=== PATIENT | female | born 1990 | race Caucasian/White ===

== ENCOUNTER 2016-10-05 17:32 | Emergency (ER) | payer OTHER ==
[2016-10-05] MEDS ORDERED: KETOROLAC 30 MG/ML VIAL IVP STA (18:03)
[2016-10-05] MEDS ORDERED: PROMETHAZINE INJ 25 MG in SODIUM CHLORIDE 0.9% 50 ML IV STA (18:03)
[2016-10-05] MEDS ORDERED: LOPERAMIDE 2 MG CAPSULE PO STA (18:03)
[2016-10-05] MEDS ORDERED: SODIUM CHLORIDE 0.9% 1,000 ML IV ONE (18:03)
[2016-10-05] MEDS ORDERED: PROMETHAZINE 25 MG/1 ML VIAL ONE (18:11)
[2016-10-05] MEDS ORDERED: KETOROLAC 30 MG/ML VIAL ONE (18:11)
[2016-10-05] MEDS ORDERED: LOPERAMIDE 2 MG CAPSULE PO ONE (18:11)
[2016-10-05] MEDS ORDERED: IOPAMIDOL-300 100 ML VIAL IVP ONE (19:28)
[2016-10-05] MEDS ORDERED: ONDANSETRON ODT 4 MG Prepack 2 TL STA (20:06)
[2016-10-05] MEDS ORDERED: ONDANSETRON ODT 4 MG Prepack 2 TL ONE (20:08)
== END 2016-10-05 20:20 | disposition home or self-care (01) ==
DX: K76.0 Fatty (change of) liver, not elsewhere classified (principal); K57.30 Diverticulosis of large intestine without perforation or abscess without bleeding; R10.84 Generalized abdominal pain; D72.829 Elevated white blood cell count, unspecified; R11.10 Vomiting, unspecified; R19.7 Diarrhea, unspecified
CPT/HCPCS: 36415; 74177; 80053; 80307; 81001; 81025; 83690; 85025; 87339; 96365; 96375; 99283; 99284; A9270; Q9967

== ENCOUNTER 2019-06-09 10:16 | Outpatient (CLI) | payer OTHER ==
--- NOTE | 2019-06-09 16:15 | CT Report ---
Reason: HEADACHE Procedure Date: 06/09/2019 Accession Number: [id number] / [id number] Procedure: CT - HEAD WO CPT Code: FULL RESULT: EXAM: CT HEAD EXAM DATE: 06/09/2019 10:51 AM. CLINICAL HISTORY: HEADACHE. COMPARISON: None. TECHNIQUE: Multiaxial CT images were obtained from the foramen magnum to the vertex. Reformats: Sagittal and coronal. IV contrast: None. In accordance with CT protocol optimization, one or more of the following dose reduction techniques were utilized for this exam: automated exposure control, adjustment of mA and/or KV based on patient size, or use of iterative reconstructive technique. FINDINGS: Parenchyma: No intraparenchymal hemorrhage. No evidence of mass, midline shift. Gao-white differentiation is distinct. Extraaxial Spaces: Basal cisterns are preserved. No subdural or epidural collections identified. Ventricles: Normal in size and position. Sinuses and Orbits: Partial visualization of macular sinuses demonstrates opacification of the left ostiomeatal unit with partial opacification of the left maxillary sinus. Frontal sinuses, ethmoid air cells and sphenoid sinuses appear clear. Mastoid cells are normally pneumatized. Osseous orbits are unremarkable. Bones: No evidence of fracture or calvarial defect. Other: None. IMPRESSION: Sinusitis. RADIA
== END 2019-06-09 10:17 | disposition home or self-care (01) ==
LOC: DI 10:16
PROVIDERS: ATTEND Physician Assistant
DX: J32.0 Chronic maxillary sinusitis (principal)
CPT/HCPCS: 70450

== ENCOUNTER 2019-11-14 08:51 | Outpatient (CLI) | payer OTHER | END 2019-11-14 08:52 | disposition home or self-care (01) | LOC: DI 08:51 | PROVIDERS: ATTEND Physician Assistant | DX: Z53.9 Procedure and treatment not carried out, unspecified reason (principal) ==

== ENCOUNTER 2020-05-16 09:40 | Outpatient (CLI) | payer OTHER ==
[2020-05-16 15:51] LABS: THYROID STIMULATING HORMONE 0.3 uIU/mL (0.34-5.60)
[2020-05-16 15:53] LABS: FREE T4 (FREE THYROXINE) 1.28 ng/dL (0.58-1.64)
== END 2020-05-16 09:41 | disposition home or self-care (01) ==
LOC: LAB.S 09:40
PROVIDERS: ATTEND Physician Assistant
DX: E03.9 Hypothyroidism, unspecified (principal)
CPT/HCPCS: 36415; 84439; 84443

== ENCOUNTER 2020-11-21 13:15 | Outpatient (CLI) | payer OTHER ==
[2020-11-21 14:03] VITALS: BP 122/77
--- NOTE | 2020-11-21 14:03 | SLEEP CARE CONSULTATION ---
Information from patient questionnaire entered by Palbito Cruz. I have reviewed and concur with the information entered by Pablito Cruz. This document represents the service I personally performed and the decisions made by me, Ilana Davis ARNP. History of Present Illness Service Date and Time: 11/21/2020 1315 Reason for Visit: New patient Chief Complaint: reports: Unrefreshed sleep, Snoring (on and off, can be quiet or very loud), Fatigue. denies: Observed pauses in breathing Date of Onset: Unknown Usual bedtime: Approx. 8 PM Time it takes to fall asleep: 1 in - 30 min Snores at night: Yes (so I have been told) Observed to quit breathing while asleep: No Sleeps alone due to snoring: No Number of times waking at night: 0-2 times/night Reasons for waking at night: reports: Pain, Bathroom. denies: Choking, Snoring, Gasping for air Toss, Turn, or Twitch while sleeping: Yes Recalls having dreams: Yes Usually gets out of bed at: 3:30 - 4:15 AM Feels refreshed in the morning: No Morning headache: No Sleepy or fatigued during the day: Yes Ever fallen asleep while driving: No Takes day naps: No Dreams during day naps: No Prior sleep studies: No Additional HPI information: I had the pleasure of seeing MATTHEW GARCIA today regarding the possibility of her having a sleep disorder. Her current complaints are unrefreshed sleep, snoring and fatigue. She has trouble sleeping. She has gained a lot of weight in last 5 years, about 60 pounds. She had a thyroid issue after her daughter was born in 2013 and she has not been able to get her weight back down since that time. She states her current living situation in a trailer may be the main cause of her trouble sleeping because the bed is not comfortable to sleep in. She wakes up feeling very tired daily when she gets up for work at [id number]. She does snore but her states that it is light some nights and loud other nights. He has not witnessed her pause in breathing. Her mother and sister have sleep apnea and are on CPAP machines. She states they are both overweight. She thinks that she probably does not have sleep apnea and just needs to lose weight. 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 Patient is and lives in [place]. Have you smoked in the past 12 months: No Alcohol use: Yes Alcohol amount and frequency: 1 drink, 1-2/month Caffeine use: Yes Caffeine amount and frequency: 2-3 shots Daily Family History Family history of sleep disordered breathing: Yes (Mother and sister) Family Hx Sleep Apnea: Mother: Sleep apnea - Treated, Sibling: Sleep apnea - Treated Allergies and Home Medications Drug allergies reviewed: Yes (metronidazole, penicillin) Home medication list reviewed: Yes Allergy and home medication list: Levothyroxine Multivitamins Review of Systems Weight gain over past 5 years: 60 Cardiovascular: denies: high blood pressure Gastrointestinal: reports: nausea. denies: heartburn Neurological: reports: headaches. denies: seizure Ear/Nose/Throat: reports: nose bleeds, wisdom teeth removed. denies: dry mouth/throat, tonsillectomy Endocrine: reports: thyroid disease (?) Musculoskeletal: reports: back pain Immunologic: denies: allergies to food or environment Physical Exam Blood Pressure: 122/77 Cuff size: wrist Heart Rate: 81 O2 Saturation: 97 Height: 5 ft 2 in Weight: 259 lb Body Mass Index: 47.3 BMI Classification: Morbidly Obese Neck circumference: 17 (inches) Nostrils: patent to airflow Mouth and throat: narrow oropharynx Soft palate: long Hard palate: normal Uvula: normal Uvula visualization: 50% Mallampati Class II Tongue: enlarged in size with teeth mchugh on lateral edges Tonsils: 1+ Neck: normal w/o lymphadenopathy or thyromegaly Heart: regular rate and rhythm Lungs: clear bilaterally Impression and Plan 1. Suspected Obstructive Sleep Apnea-Hypopnea Syndrome, as suggested by a history of irregular snoring and unrefreshed sleep. Narrow oropharynx and obesity are common predisposing factors for obstructive sleep apnea-hypopnea syndrome. I recommend proceeding to polysomnography to confirm the diagnosis and to assess severity. If the patient has significant sleep disordered breathing, a manual CPAP titration study will also be performed to find the optimal treatment pressure. I informed the patient of what the sleep studies involve and after some discussion, obtained agreement to proceed. The pathophysiology of obstructive sleep apnea-hypopnea syndrome was discussed with the patient and health risks of cardiovascular and cerebrovascular disease if not treated. Risks of drowsy driving discussed in detail and patient advised to avoid long distance driving and to loin puller at the first sign of drowsiness. Patient agreed to plan. * Schedule polysomnography +- manual CPAP titration study and return in 1-2 weeks after the study to discuss result and initiate therapy. * Avoid long distance driving or driving when feeling sleepy. * Avoid alcohol, sedative and muscle relaxant around bedtime. * Attempt to lose weight. * Review instructions provided by trained office staff on how to prepare for the sleep study. * Return for follow-up after sleep study completed. Counseling Topics: Weight loss health impact Visit Type: In Office Time Spent with Patient (minutes): 31 Provider Statement: I spent 100% of the Face to Face Visit with the patient with greater than 50% spent counseling the patient and coordination of care.
== END 2020-11-21 13:16 | disposition home or self-care (01) ==
LOC: SC 13:15
PROVIDERS: ATTEND Nurse Practitioner Family
DX: R06.83 Snoring (principal); G47.8 Other sleep disorders; E66.01 Morbid (severe) obesity due to excess calories; Z68.42 Body mass index [BMI] 45.0-49.9, adult
CPT/HCPCS: 99203; 99212

== ENCOUNTER 2020-12-18 15:07 | Outpatient (CLI) | payer OTHER | END 2020-12-18 15:08 | disposition home or self-care (01) | LOC: SC 15:07 | PROVIDERS: ATTEND Nurse Practitioner Family | DX: G47.33 Obstructive sleep apnea (adult) (pediatric) (principal); E66.9 Obesity, unspecified; Z68.42 Body mass index [BMI] 45.0-49.9, adult | CPT/HCPCS: 95806 ==

== ENCOUNTER 2021-01-02 11:21 | Outpatient (CLI) | payer OTHER ==
--- NOTE | 2021-01-02 11:39 | SLEEP CARE CONSULTATION ---
Information from patient questionnaire entered by Marielle Lozoya. I have reviewed and concur with the information entered by Marielle Lozoya. This document represents the service I personally performed and the decisions made by , Ilana Davis ARNP. History of Present Illness Service Date and Time: 01/02/2021 112 Initial [place] Sleepiness Scale score: 6 (in 2020) Current [place] Sleepiness Scale score: 7 Additional HPI information: MATTHEW GARCIA returns via Telehealth visit for follow up and results of the recently performed home sleep study. I explained the pathophysiology behind obstructive sleep apnea. We then spent quite a bit of time discussing different treatment options. For mild obstructive sleep apnea, surgery and oral appliance are alternatives to nasal CPAP therapy but in moderate or severe cases, nasal CPAP is the most effective and reliable treatment. Because apnea is primarily in supine position, then positional management therapy could be effective. Methods discussed such as positioning with pillows, using a T-shirt with tennis balls in the back, and shown commercial products that have a pillow format on back to prevent supine sleep. I reviewed the impact of weight changes on sleep apnea and strongly recommended losing weight. After some discussion, the patient opted to go with the nasal CPAP therapy. Nasal autoCPAP set at 4-15 cmH20 will be ordered with rationale explained. A manual titration study will be ordered if unable to find optimal pressure with office adjustments. I explained how CPAP machine works and what to expect when using the machine. Using CPAP every night in order to get used to it was emphasized. Patient advised to put CPAP mask on before getting into bed so as not to fall asleep without CPAP. To assist acclimation to CPAP use, it could also be used for a short time during day while reading or watching TV. The patient was instructed to call the CPAP supplier to discuss any mechanical problem that may occur. If the mask given is uncomfortable or is difficult to keep on through the night even with adjustment, contact the CPAP supplier as many will replace with another mask style if notified before 30 days. If snoring or perceives is not getting enough air or too much air from the machine, notify this office. Patient counseled not drink alcohol less than 4 hours before bedtime as it can increase snoring and apnea. Patient was cautioned about risks of drowsy driving until sleepiness symptoms resolve. Sleep Study - Results Type of Sleep Study: Home sleep study Prior sleep studies: No Polysomnography/Home Sleep Study results: Physician Impression: The quality of the study is good. The length of the study is adequate (> 240 minutes). Please also see the tabulated and graphic data. 1. Obstructive Sleep Apnea-Hypopnea (ICD-10 G47.33), moderate, with an AHI of 24.3/hr and mat SaO2 of 84%. During the study, the patient had 165 apneas (163 obstructive, 0 central, 2 mixed) and 50 hypopneas. The longest episode lasted 76.0 seconds. The respiratory events occurred more frequently during supine sleep (supine AHI was 28.7 and non-supine, 12.94). 2. Hypoxemia (ICD-10 R09.02), mild, with the lowest oxygen saturation of 84 % and 1.1 minutes with SaO2 under 90%. Baseline oxygen saturation was normal (Average oxygen saturation was 96%). Allergies and Home Medications Home medication list reviewed: Yes (no changes) Review of Systems Review of systems same as previous: Yes (no changes) Physical Exam Vital signs obtained and entered by: Telehealth visit to reduce exposure during Covid pandemic Height: 5 ft 2 in Impression and Plan 1. Obstructive Sleep Apnea-Hypopnea Syndrome, moderate, with lowest oxygen saturation of 84%. Obviously this is the cause of the patients symptoms of unrefreshed sleep, and excessive daytime sleepiness. Positive pressure therapy could benefit depression. As mentioned above, the patient will be started on nasal autoCPAP therapy with pressure set at 4-15 cmH2O. A manual titration study will be completed if unable to find optimal treatment pressure with office adjustments. Compliance guidelines also reviewed. Because the apnea is more severe supine, I instructed to avoid sleeping supine using pillow positioning until able to start CPAP use. 2. Hypoxemia, mild, with the lowest oxygen saturation of 84 % and 1.1 minutes with SaO2 under 90%. Her baseline oxygen saturation was normal with an average oxygen saturation of 96%. * Nasal auto CPAP therapy, pressure at 4-15 cm H2O. * Attempt to lose weight. * Avoid alcohol consumption near bedtime. * Avoid supine sleep until using CPAP. * The patient is again cautioned about driving until sleepiness completely resolves. * Return one month after CPAP obtained. I will assess response to therapy and compliance at that time. Counseling Topics: Spare mask, Weight loss health impact Visit Type: Telehealth Video Video Type: VSee Patient Location: Car Location of Provider: Office Patient agrees and consents to this telehealth visit type: Yes Patient agrees to have their insurance billed: Yes Time Spent with Patient (minutes): 20 Provider Statement: I spent 100% of the Telehealth Video Call with the patient with greater than 50% spent counseling the patient and coordination of care.
== END 2021-01-02 11:22 | disposition home or self-care (01) ==
LOC: SC 11:21
PROVIDERS: ATTEND Nurse Practitioner Family
DX: G47.33 Obstructive sleep apnea (adult) (pediatric) (principal); R09.02 Hypoxemia

== ENCOUNTER 2021-05-08 14:10 | Outpatient (CLI) | payer OTHER ==
--- NOTE | 2021-05-08 17:04 | XRAY Report ---
PROCEDURE: Foot 3 View RT INDICATIONS: RIGHT FOOT PAIN TECHNIQUE: 3 views of the foot were acquired. COMPARISON: None FINDINGS: Bones: No fractures or dislocations. No suspicious bony lesions. Retrocalcaneal plantar bone spurs . Soft tissues: No tibiotalar joint effusion. Achilles tendon appears normal. IMPRESSION: No fracture. No osseous lesion. If there is continued clinical concern for pathology, then advanced i maging (CT, MRI, bone scan) should be considered for further evaluation. Reviewed by: ROBERT Hines on 05/08/2021 5:03 PM PDT Approved by: Carlos A Cochran MD on 05/08/2021 5:03 PM PDT Station ID: [id number]
== END 2021-05-08 23:59 | disposition home or self-care (01) ==
LOC: DI.S 14:10
PROVIDERS: ATTEND Physician Assistant Medical
DX: M79.671 Pain in right foot (principal)

== ENCOUNTER 2021-05-29 13:23 | Outpatient (CLI) | payer OTHER ==
--- NOTE | 2021-05-29 13:46 | SLEEP CARE CONSULTATION ---
Information from patient questionnaire entered by Marielle Lozoya. I have reviewed and concur with the information entered by Marielle Lozoya. This document represents the service I personally performed and the decisions made by , Ilana Davis ARNP. History of Present Illness Service Date and Time: 05/29/2021 1323 Previous diagnosis: Moderate, Obstructive Sleep Apnea-Hypopnea Syndrome AHI: 24.3 (in 2020) Reason for follow up: first compliance Equipment type: CPAP Equipment obtained from: Other ([facility]; got initial supplies) Mask style: Nasal Backup mask available: No (will keep old mask when replaced) Last cushion change: 1 month Prior sleep studies: Yes Year and Where: 2020 - [facility] Type of Sleep Study: Home sleep study HPI additional information: MATTHEW GARCIA was diagnosed to have moderate, AHI 24.3, obstructive sleep apnea-hypopnea syndrome and returns via Video Telehealth visit today for CPAP therapy first compliance follow-up. CPAP Compliance Data - Data Reviewed with Patient Average duration of nightly device use: 6 hr 8 min Compliance rate %: 73 Current pressure setting (cmH2O): 4-15 (median 7.0, avg 10.3, max 11.7) Humidity settin Average residual AHI: 0.7 Subjective Missed days of use due to: reports: mask issues (hard time falling asleep with mask on, having panic attacks) Patient concerns: reports: mask discomfort (headset mostly), mask leak noise (when sleeping on side or stomach), condensation in mask/hose (woke up with "flooding into mask"). denies: aerophagia, air blowing in eyes, nasal congestio n, dry mouth, nose, throat, epistaxis, other Observed to snore while using device: No Current pressure setting perceived as: comfortable On therapy, patient: reports: other (having trouble waking up with panic attacks; having less headaches). denies: sleeping better, awakening more refreshed, being more awake and alert during the day, more rested overall, drowsiness while driving Initial [place] Sleepiness Scale score: 6 (in 2020) Current [place] Sleepiness Scale score: 4 Allergies and Home Medications Home medication list reviewed: Yes (Levothyroxine to 150 mcg) Review of Systems Review of systems same as previous: Yes (no changes) Physical Exam Vital signs obtained and entered by: Telehealth visit to reduce exposure during Covid pandemic Height: 5 ft 2 in Impression and Plan 1. Obstructive Sleep Apnea-Hypopnea Syndrome, moderate, with good treatment compliance and excellent apnea control. On CPAP therapy, the patient has not found that she is having better sleep quality or being more rested overall. Patient has had several incidences waking up in a panic attack due to condensation in the mask. She called her [employer] company and they had her turn her humidity down. She has also turned her heated hose down because it was too warm on her face. She is not getting this condensation every night but it still occurs to a small degree. She does not feel she is getting better rest because of the interruptions due to the mask and the condensation yet. She continues to try to wear it every night and has reached compliance.We discussed that she may turn the humidity off as long as she is not developing oral or nasal dryness. She voiced understanding. Patient states the current pressure has felt comfortable at the beginning of the night but gets more uncomfortable when the pressure increases. The patients pressure will be changed to autoCPAP 7-12 cmH20 to reflect the pressure used by patient. Patient advised to contact me if pressure change is uncomfortable so that it can be adjusted. Goals for apnea control discussed. Patient was encouraged to lose weight for their overall health and to reduce apneas. Patient's apnea severity and rationale for treatment to reduce apnea, improve sleep quality and reduce cardiovascular and cerebrovascular events was reviewed. I also reviewed the benefit of consistent device use of CPAP for depression. * Change auto CPAP pressure to 7-12 cmH2O * Notify me if snoring with mask or feeling that the pressure is too much or too little * Attempt to lose weight * Call this office if any problems using CPAP * Return for follow up in 3 months, or sooner if concerns arise Counseling Topics: Spare mask, Weight loss health impact Visit Type: Telehealth Video Video Type: VSee Patient Location: Home Location of Provider: Office Patient agrees and consents to this telehealth visit type: Yes Patient agrees to have their insurance billed: Yes Time Spent with Patient (minutes): 24 Provider Statement: I spent 100% of the Telehealth Video Call with the patient with greater than 50% spent counseling the patient and coordination of care.
== END 2021-05-29 13:24 | disposition home or self-care (01) ==
LOC: SC 13:23
PROVIDERS: ATTEND Nurse Practitioner Family
DX: G47.33 Obstructive sleep apnea (adult) (pediatric) (principal)

== ENCOUNTER 2021-07-10 11:31 | Outpatient (CLI) | payer OTHER ==
--- NOTE | 2021-07-10 12:02 | SLEEP CARE CONSULTATION ---
Information from patient questionnaire entered by Nandini Funes. I have reviewed and concur with the information entered by Nandini Funes. This document represents the service I personally performed and the decisions made by , Ilana Davis ARNP. History of Present Illness Service Date and Time: 07/10/2021 1131 Previous diagnosis: Moderate, Obstructive Sleep Apnea-Hypopnea Syndrome AHI: 24.3 Reason for follow up: other (6 week with pressure change) Equipment type: CPAP Equipment obtained from: Other ([facility]; just ordered new supplies) Mask style: Nasal Backup mask available: No (waiting on supplies) Last cushion change: over 1 month Prior sleep studies: Yes Year and Where: 2020 - [facility] Type of Sleep Study: Home sleep study HPI additional information: MATTHEW GARCIA was diagnosed to have moderate, AHI 24.3, obstructive sleep apnea-hypopnea syndrome and returns via video telehealth visit today for CPAP therapy 6 week pressure change follow-up. Sleep Study - Results Type of Sleep Study: Home sleep study Prior sleep studies: Yes Year and Where: 2020 - [facility] CPAP Compliance Data - Data Reviewed with Patient Average duration of nightly device use: 6 hours 28 minutes Compliance rate %: 86 Current pressure setting (cmH2O): 7-12 (median 8.2, avg 10.7, max 11.6) Average residual AHI: 0.5 Central apnea: 0 Obstructive apnea: .4 Hypopnea: .1 Subjective Missed days of use due to: reports: other (panic attacks, will take a night off) Patient concerns: reports: mask discomfort (getting loose), condensation in mask/hose (occasional, has adjusted heated hose and humidity with some improvement), other (panic attacks nightly). denies: aerophagia, air blowing in eyes, mask leak noise, nasal congestion, dry mouth, nose, throat, epistaxis Observed to snore while using device: No Current pressure setting perceived as: comfortable On therapy, patient: reports: other (not feeling more rested or sleeping better at this point). denies: drowsiness while driving Initial [place] Sleepiness Scale score: 6 (in 2020) Current [place] Sleepiness Scale score: 6 Allergies and Home Medications Home medication list reviewed: Yes (no changes) Review of Systems Review of systems same as previous: Yes (no changes) Physical Exam Vital signs obtained and entered by: Telehealth visit to reduce exposure during covid pandemic Height: 5 ft 2 in Impression and Plan 1. Obstructive Sleep Apnea-Hypopnea Syndrome, moderate, with good treatment compliance and excellent apnea control. On CPAP therapy, the patient has better sleep quality and is more rested overall. Patient is satisfied with CPAP therapy and her pressure setting is comfortable. Patient experiencing panic attacks at night and will have to take off her mask. Patient states she was having panic attacks prior to using the CPAP but because of her claustrophobia she continues to have these panic attacks. She is not sure that she can leave it on the CPAP. She feels the pressure was just too high at first that it caused some panic attacks but she states she is used to the pressure now and does not want any changes. Patient's apnea severity and rationale for treatment to reduce apnea, improve sleep quality and reduce cardiovascular and cerebrovascular events was reviewed. I also reviewed the benefit of consistent device use of CPAP for depression. Patient was encouraged to lose weight for their overall health and to reduce apneas. * Continue auto CPAP pressure at 7-12 cmH2O * Notify me if snoring with mask or feeling that the pressure is too much or too little * Attempt to lose weight * Call this office if any problems using CPAP * Return for follow up in 3 months, or sooner if concerns arise Counseling Topics: Spare mask, Weight loss health impact Visit Type: Telehealth Video Video Type: VSee Patient Location: car Location of Provider: Office Patient agrees and consents to this telehealth visit type: Yes Patient agrees to have their insurance billed: Yes Time Spent with Patient (minutes): 20 Provider Statement: I spent 100% of the Telehealth Video Call with the patient with greater than 50% spent counseling the patient and coordination of care.
== END 2021-07-10 11:32 | disposition home or self-care (01) ==
LOC: SC 11:31
PROVIDERS: ATTEND Nurse Practitioner Family
DX: G47.33 Obstructive sleep apnea (adult) (pediatric) (principal)

== ENCOUNTER 2021-10-09 13:00 | Outpatient (CLI) | payer OTHER ==
--- NOTE | 2021-10-09 13:16 | SLEEP CARE CONSULTATION ---
Information from patient questionnaire entered by Octavia Shelton MA. I have reviewed and concur with the information entered by Octavia Shelton MA. This document represents the service I personally performed and the decisions made by , Ilana Davis ARNP. History of Present Illness Service Date and Time: 10/09/2021 1300 Previous diagnosis: Moderate, Obstructive Sleep Apnea-Hypopnea Syndrome AHI: 24.3 Reason for follow up: three month Equipment type: CPAP Equipment obtained from: Other ([facility]; getting supplies) Mask style: Nasal Backup mask available: No (will keep old mask when replaced) Last cushion change: 2-3 weeks ago [facility] Type of [facility] Study: Home sleep study HPI additional information: MATTHEW GARCIA was diagnosed to have moderate, AHI 24.3, obstructive sleep apnea-hypopnea syndrome and returns via video telehealth visit today for CPAP therapy three month follow-up. Sleep Study - Results Type of Sleep Study: Home sleep study Prior sleep [facility]: Yes [facility] Compl[facility] Data - Data Reviewed with Patient Average duration of nightly device use: 5 HOURS 19 MINUTES Compliance rate %: 62 (90 days, 73% last 30 days) Current pressure setting (cmH2O): 7-12 Average residual AHI: 0.4 Central apnea: 0 Obstructive apnea: 0.3 Average large leak: 5.8 Subjective Patient concerns: reports: mask discomfort (needs headgear to be tighter or smaller; gets loose quickly). denies: aerophagia, air blowing in eyes, mask leak noise, condensation in mask/hose, nasal congestion, dry mouth, nose, throat, epistaxis, other Observed to snore while using device: No Current pressure setting perceived as: comfortable On therapy, patient: reports: sleeping better (sometimes), more rested overall, other (still waking up multiple times on those nights). denies: drowsiness while driving Initial [place] Sleepiness Scale score: 6 (in 2020) Current [place] Sleepiness Scale score: 3 Allergies and Home Medications Home medication list reviewed: Yes (no changes) Review of Systems Review of systems same as previous: Yes (no changes) Physical Exam Vital signs obtained and entered by: Telehealth visit Height: 5 ft 2 in Impression and Plan 1. Obstructive Sleep Apnea-Hypopnea Syndrome, moderate, with good treatment com pliance and excellent apnea control. On CPAP therapy, the patient has better sleep quality and is more rested overall. Patient states she is still having difficulty with getting used to the CPAP mask. She feels the CPAP is waking her up at night due to the mask on her face and once the pressure shot up high. She turned her machine off and then on and it has not reoccurred. She feels she sleeps more solidly without the CPAP mask but does note some improvements on her daytime tiredness when using her CPAP. She has reached compliance in last 30 days. I will have her follow up in 6 months and encouraged her to keep her compliance up. Patient's apnea severity and rationale for treatment to reduce apnea, improve sleep quality and reduce cardiovascular and cerebrovascular events was reviewed. I also reviewed the benefit of consistent device use of CPAP for depression. Patient was encouraged to lose weight for their overall health and to reduce apneas. * Continue auto CPAP pressure at 7-12 cmH2O * Notify me if snoring with mask or feeling that the pressure is too much or too little * Attempt to lose weight * Call this office if any problems using CPAP * Return for follow up in 6 months, or sooner if concerns arise Counseling Topics: Spare mask, Weight loss health impact Visit Type: Telehealth Video Video Type: [place] Patient Location: work Location of Provider: Office Patient agrees and consents to this telehealth visit type: Yes Patient agrees to have their insurance billed: Yes Time Spent with Patient (minutes): 17 Provider Statement: I spent 100% of the Telehealth Video Call with the patient with greater than 50% spent counseling the patient and coordination of care.
== END 2021-10-09 13:01 | disposition home or self-care (01) ==
LOC: SC 13:00
PROVIDERS: ATTEND Nurse Practitioner Family
DX: G47.33 Obstructive sleep apnea (adult) (pediatric) (principal)

== ENCOUNTER 2021-12-04 07:07 | Outpatient (CLI) | payer OTHER | END 2021-12-04 07:08 | disposition home or self-care (01) | LOC: LAB.S 07:07 | PROVIDERS: ATTEND Obstetrics & Gynecology | DX: Z31.69 Encounter for other general counseling and advice on procreation (principal); R74.01 Elevation of levels of liver transaminase levels; Z53.9 Procedure and treatment not carried out, unspecified reason ==

== ENCOUNTER 2022-01-15 07:27 | Day surgery (SDC) | payer OTHER ==
[~2022-01-15 07:27] MED LIST: ACETAMINOPHEN 1,000 MG/100 ML 100 ML IV ONE; CELECOXIB 100 MG CAPSULE PO ONE; DEXAMETHASONE 4 MG/ML VIAL ONE; GABAPENTIN 400 MG CAPSULE ONE; LIDOCAINE-MPF 2% 5 ML VIAL ONE; MIDAZOLAM 2 MG/2 ML VIAL ONE; ONDANSETRON 4 MG/2 ML VIAL ONE; PROPOFOL 200 MG/20 ML VIAL IVP ONE; fentaNYL 100 MCG/2 ML VIAL ONE
[2022-01-15 07:48] LABS: HCG UR QUAL NEGATIVE
[2022-01-15] MEDS ORDERED: LACTATED RINGERS 1,000 ML IV ONE ×2 (08:02→09:18)
--- NOTE | 2022-01-15 08:08 | ANESTHESIA ---
Pre-Anesthesia VS, & Labs - Diagnosis dysfunctional uterine bleeding - Procedure Myosure hysteroscopy, D&C Vital Signs: Temp Pulse Resp BP Pulse Ox 36.3 C L 89 20 124/59 L 100 01/15/22 07:37 01/15/22 07:37 01/15/22 07:37 01/15/22 07:37 01/15/22 07:37 Height: 5 ft 3 in Weight (kg): 124.9 kg Body Mass Index: 48.7 BMI Classification: Morbidly Obese - NPO >8 hours - Is Patient ?: No - Lab Results Lab results reviewed: Yes Home Medications and Allergies Levothyroxine [Synthroid] 163 mcg PO DAILY 10/05/16 Allergies/Adverse Reactions: Allergies Allergy/AdvReac Type Severity Reaction Status Date / Time metronidazole Allergy Rash Verified 10/05/16 17:38 Penicillins Allergy Rash Verified 10/05/16 17:38 Anes History & Medical History - Anesthetic History Anesthesia Complications: reports: No previous complications Family history of Anesthesia Complications: Denies Family history of Malignant Hyperthermia: Denies - Medical History Cardiovascular: reports: None Pulmonary: reports: Sleep apnea, CPAP use Gastrointestinal: reports: None Urinary: reports: None Musculoskeletal: reports: None Endocrine/Autoimmune: reports: HyPOthyroidism Skin: reports: None Smoking Status: Never smoker - Surgical History Orthopedic: Exam General: Alert, Oriented x3, Cooperative, No acute distress Dental: WNL Mouth Openin Fingerbreadth Neck Mobility: Normal Mallampati classification: II Plan Anesthesia Type: General Consent for Procedure(s) Verified and Reviewed: Yes Code Status: Attempt Resuscitation ASA classification: 3-Severe systemic disease Is this case an emergency?: No
[2022-01-15] MEDS ORDERED: BUPIVACAINE 0.25% PF 10 ML VIAL ONE (08:28)
[2022-01-15] MEDS ORDERED: LIDOCAINE 2%-EPI 1:100000 20 ML MDV ONE (08:28)
[2022-01-15] MEDS ORDERED: BUPIVACAINE 0.25% PF 10 ML VIAL SUBQ ONE ×2 (08:59→09:05)
[2022-01-15] MEDS ORDERED: LIDOCAINE 1%-EPI 1:100000 20 ML MDV SUBQ ONE ×2 (08:59→09:05)
--- NOTE | 2022-01-15 09:28 | OPERATIVE REPORT ---
Operative Report - General Procedure Date: 01/15/22 Planned Procedure: Hysteroscopy D&C Pre-Op Diagnosis: DUB Procedure Performed: Hysteroscopy D&C Post Op Diagnosis: Same - Procedure Note Primary Surgeon: Lashell Israel MD Pathology: uterine contents IV Fluids (mL): 400 Estimated Blood Loss (mL): 5 Urine Output (mL): 75 Indications: Patient is a 31 yo female with DUB and oligomenorrhea with BMI of 49 at high risk of endometrial cancer here for hysteroscopy D&C. Findings: Normal uterine cavity with bilateral tubal ostia visualized. Thick and polypoid endometrium. No fibroids or other structural abnormalities. Complications: None - Other Other Information/Narrative: Risks benefits and alternatives to the procedure were reviewed. Consent was aga in confirmed. Patient was taken to the operating room where she underwent general anesthesia. She was positioned in dorsolithotomy position with legs resting in yellowfin stirrups. She was prepped and draped in the usual sterile fashion. Preoperative antibiotics were not indicated. Preoperative checklist was performed. Exam under anesthesia was performed. Speculum was placed in the vagina and the cervix was visualized. Single-tooth tenaculum was placed at the anterior cervical lip. Paracervical block was administered using a total of 20 cc of 0.25% bupivicaine and 2% lidocaine with epinephrine was injected at the 4:00 and 8:00 positions lateral to the portio of the cervix. The cervical os was serially dilated with Hegar dilators to accommodate the caliber of the diagnostic hysteroscope. The hysteroscope was inserted and findings were noted as above. Hysteroscope was removed. Sharp curettage D&C was performed with sharp curettage. Hysteroscope was reinserted. Uterine cavity was smooth at close of procedure. All instruments were removed from the uterus. Tenaculum was removed. Tenaculum sites were noted to be hemostatic. All instruments were removed from the vagina. Procedure was well-tolerated without complication. Fluid deficit:230 cc
[2022-01-15] MEDS ORDERED: ePHEDrine 50 MG/ML VIAL IVP PRN (09:46)
[2022-01-15] MEDS ORDERED: ONDANSETRON 4 MG/2 ML VIAL IVP PRN (09:46)
[2022-01-15] MEDS ORDERED: HYDROmorphone 0.5 MG/0.5 ML SYRINGE IVP PRN (09:46)
[2022-01-15] MEDS ORDERED: ATROPINE ABBOJECT 1 MG/10 ML SYRINGE IVP PRN (09:46)
[2022-01-15] MEDS ORDERED: MORPHINE 2 MG/ML CARPUJECT IVP PRN (09:46)
[2022-01-15] MEDS ORDERED: NALOXONE 0.4 MG/ML VIAL IVP PRN (09:46)
[2022-01-15] MEDS ORDERED: METOCLOPRAMIDE 10 MG/2 ML VIAL IVP PRN (09:46)
[2022-01-15] MEDS ORDERED: fentaNYL 100 MCG/2 ML VIAL IVP PRN (09:46)
[2022-01-15] MEDS ORDERED: LACTATED RINGERS 1,000 ML IV SCH (10:00)
[2022-01-15 10:26] VITALS: BP 108/50
--- NOTE | 2022-01-15 13:31 | ANESTHESIA POST OP EVALUATION ---
Anesthesia Post Eval - Post Anesthesia Eval Vitals: Last Vital Signs Temp 36.6 C 01/15/22 10:26 Pulse 76 01/15/22 10:26 Resp 20 01/15/22 10:26 BP 108/50 L 01/15/22 10:26 Pulse Ox 100 01/15/22 10:26 CV Function Including HR & BP: Stable Pain Control: Satisfactory Nausea & Vomiting: Negative Mental Status: Baseline Respiratory Status: Airway Patent Hydration Status: Satisfactory Anesthesia Complications: None
== END 2022-01-15 07:28 | disposition home or self-care (01) ==
LOC: SDS 07:27
PROVIDERS: ATTEND Obstetrics & Gynecology
PROC: 0UDB7ZX Extraction of Endometrium, Via Natural or Artificial Opening, Diagnostic (ICD-10-PCS; principal; 2022-01-15 08:30)
DX: N93.8 Other specified abnormal uterine and vaginal bleeding (principal); E66.01 Morbid (severe) obesity due to excess calories; G47.30 Sleep apnea, unspecified; Z32.02 Encounter for pregnancy test, result negative; Z68.42 Body mass index [BMI] 45.0-49.9, adult
CPT/HCPCS: 58558; 81025; A9270; J0131; J7120